=== PATIENT | female | born 1985 | race Caucasian/White ===

== ENCOUNTER 2019-05-17 12:16 | Emergency (ER) | payer SELFPAY ==
[2019-05-17] MEDS ORDERED: dexAMETHasone 10 MG/ML VIAL ONE (15:02)
--- NOTE | 2019-05-17 15:06 | ER ---
Nurse's Notes [facility] Name: Karey Ty Age: 33 yrs Sex: Female : 1985 Arrival Date: 05/17/2019 Time: 12:16 Bed 27 Private MD: Diagnosis: Acute bronchitis;Acute pharyngitis;Acute ethmoidal sinusitis;Acute maxillary sinusitis Presentation: 05/17 12:34 Presenting complaint: Presenting complaint: Patient states: cough, chest congestion, sv zain ear pain x 2 weeks, OTC meds have not helped. Transition of care: patient was not received from another setting of care. Onset of symptoms was May 2019. Risk Assessment: Do you want to hurt yourself or someone else? Patient reports no desire to harm self or others. Care prior to arrival: None. 12:34 Method Of Arrival: Ambulatory sv 12:34 Acuity: HARSH 3 sv 14:15 Initial Sepsis Screen: Does the patient meet any 2 criteria? No. Patient's initial aa5 sepsis screen is negative. Does the patient have a suspected source of infection? No. Patient's initial sepsis screen is negative. Triage Assessment: 12:34 General: Appears in no apparent distress. uncomfortable, Behavior is calm, cooperative, sv appropriate for age. Neuro: Level of Consciousness is awake, alert, obeys commands, Oriented to person, place, time, situation, Moves all extremities. Full function. Respiratory: Reports cough that is persistent pain with cough Respiratory effort is even, unlabored, Respiratory pattern is regular, symmetrical. Historical: - Allergies: 12:38 Ceftin; sv - PMHx: 12:38 None; sv - PSHx: 12:38 Hysterectomy; sv - Ebola Screening: : No symptoms or risks identified at this time. Screenin:15 Abuse screen: Denies threats or abuse. Nutritional screening: No deficits noted. aa5 Tuberculosis screening: No symptoms or risk factors identified. Fall Risk None identified. Assessment: 14:15 General: Appears comfortable, Behavior is calm, cooperative. Pain: Complains of pain in aa5 right ear and left ear Pain currently is 6 out of 10 on a pain scale. Quality of pain is described as aching. Neuro: Level of Consciousness is awake, alert, obeys commands, Oriented to person, place, time, situation. Cardiovascular: Heart tones S1 S2 present Patient's skin is warm and dry. Rhythm is regular. Respiratory: Reports cough and chest congestion Airway is patent Respiratory effort is even, unlabored, Respiratory pattern is regular, symmetrical, Breath sounds are clear bilaterally. GI: No signs and/or symptoms were reported involving the gastrointestinal system. : No signs and/or symptoms were reported regarding the genitourinary system. EENT: Reports pain in right ear and left ear. Derm: Skin is pink, warm \T\ dry. Musculoskeletal: Range of motion: intact in all extremities. 15:20 Reassessment: Patient is alert, oriented x 3, equal unlabored respirations, skin aa5 warm/dry/pink. Vital Signs: 12:38 BP 118 / 66; Pulse 71; Resp 20; Temp 98.1; Pulse Ox 97% ; Weight 74.84 kg; Height 5 ft. sv 7 in. (170.18 cm); 12:38 Body Mass Index 25.84 (74.84 kg, 170.18 cm) sv ED Course: 12:16 Patient arrived in ED. rg4 12:38 Triage completed. sv 12:38 Arm band placed on. sv 12:59 Strep Sent. sv 12:59 Flu Sent. sv 14:08 Lilian Bella, GUS is Primary Nurse. aa5 14:15 Patient has correct armband on for positive identification. Bed in low position. Call aa5 light in reach. Side rails up X 1. 14:15 No provider procedures requiring assistance completed. aa5 14:19 [facility] 14:19 Nuno Edmond MD is Attending Physician. [facility] 15:20 Patient did not have IV access during this emergency room visit. aa5 Administered Medications: 15:06 Drug: Decadron 10 mg Route: IM; Site: left deltoid; aa5 15:20 Follow up: Response: No adverse reaction aa5 Outcome: 15:03 Discharge ordered by . [facility] 15:20 Discharged to home ambulatory. aa5 15:20 Condition: stable 15:20 Discharge instructions given to patient, Instructed on discharge instructions, follow up and referral plans. medication usage, Demonstrated understanding of instructions, follow-up care, medications, Prescriptions given X 2. 15:23 Patient left the ED. hb Signatures: Stephanie Winchester RN RN sv Jonathan Astorga PA PA jmm Calderon, Audri RN RN aa5 Brittanie Petersen RN RN Monalisa Gayle4 Corrections: (The following items were deleted from the chart) 13:41 12:34 Presenting complaint: Patient states: cough, chest congestion x 2 weeks, OTC meds sv have not helped. Presenting complaint: Patient states: cough, chest congestion x 2 weeks, OTC meds have not helped. sv
--- NOTE | 2019-05-17 15:07 | EDPHYS ---
Physician Documentation [facility] Name: Karey Ty Age: 33 yrs Sex: Female : 1985 Arrival Date: 05/17/2019 Time: 12:16 Bed 27 Private MD: ED Physician Nuno Edmond HPI: 05/17 14:57 This 33 yrs old Female presents to ER via Ambulatory with complaints of Cough.[facility] 14:57 The patient or guardian reports cough. Onset: The symptoms/episode began/occurred jmm gradually, 3 week(s) ago. Modifying factors: The symptoms are alleviated by nothing, the symptoms are aggravated by nothing. This is a 33 year old female with no chronic medical conditions that presents to the ED with complaints of sinus pain, chest congestion, ear pain for the past 3 week. Patient complains of subjective fever and chills. . Historical: - Allergies: 12:38 Ceftin; sv - PMHx: 12:38 None; sv - PSHx: 12:38 Hysterectomy; sv - Ebola Screening: : No symptoms or risks identified at this time. ROS: 14:57 Eyes: Negative for injury, pain, redness, and discharge. jmm 14:57 Cardiovascular: Negative for chest pain, palpitations, and edema, Respiratory: Negative for shortness of breath, cough, wheezing, and pleuritic chest pain, Abdomen/GI: Negative for abdominal pain, nausea, vomiting, diarrhea, and constipation, Back: Negative for injury and pain, Skin: Negative for injury, rash, and discoloration, Neuro: Negative for headache, weakness, numbness, tingling, and seizure. 14:57 Constitutional: Positive for body aches, chills, fever. 14:57 ENT: Positive for ear pain, sinus congestion, sinus pain, sore throat. 14:57 All other systems are negative. Exam: 14:57 Constitutional: This is a well developed, well nourished patient who is awake, alert, jmm and in no acute distress. Head/Face: atraumatic. Eyes: EOMI, no conjunctival erythema appreciated 14:57 Chest/axilla: Normal chest wall appearance and motion. Cardiovascular: Regular rate and rhythm. No edema appreciated Respiratory: Normal respirations, no respiratory distress appreciated Abdomen/GI: Non distended, soft Back: Normal ROM Skin: General appearance color normal MS/ Extremity: Moves all extremities, no obvious deformities appreciated, no edema noted to the lower extremities Neuro: Awake and alert, normal gait Psych: Behavior is normal, Mood is normal, Patient is cooperative and pleasant 14:57 Head/face: Sinus tenderness, that is moderate, is located over the right ethmoid sinus, left ethmoid sinus, right maxillary sinus and left maxillary sinus. 14:57 ENT: Posterior pharynx: erythema, that is mild. Vital Signs: 12:38 BP 118 / 66; Pulse 71; Resp 20; Temp 98.1; Pulse Ox 97% ; Weight 74.84 kg; Height 5 ft. sv 7 in. (170.18 cm); 12:38 Body Mass Index 25.84 (74.84 kg, 170.18 cm) sv MDM: 14:41 Patient medically screened. [facility] 14:57 Data reviewed: vital signs, nurses notes. Counseling: I had a detailed discussion with caio the patient and/or guardian regarding: the historical points, exam findings, and any diagnostic results supporting the discharge/admit diagnosis, the need for outpatient follow up, to return to the emergency department if symptoms worsen or persist or if there are any questions or concerns that arise at home. 15:01 ED course: Patient is alert and non toxic in appearance in the ED. VS wnl. CXR [facility] negative. Pe appears consistent with acute sinusitis. . 05/17 12:39 Order name: Flu 05/17 12:39 Order name: Strep 05/17 12:39 Order name: Chest Pa And Lat (2 Views) XRAY 05/17 13:13 Order name: Group A Streptococcus Rapid Sc; Complete Time: 14:39 EDMS 05/17 13:20 Order name: Influenza Screen (A ; Complete Time: 14:39 EDMS Administered Medications: 15:06 Drug: Decadron 10 mg Route: IM; Site: left deltoid; aa5 15:20 Follow up: Response: No adverse reaction aa5 Disposition: 05/18 08:56 Co-signature as Attending Physician, Nuno Edmond MD I agree with the assessment and kdr plan of care. Disposition: 05/17/19 15:03 Discharged to Home. Impression: Acute bronchitis, Acute pharyngitis, Acute ethmoidal sinusitis, Acute maxillary sinusitis. - Condition is Stable. - Discharge Instructions: Acute Bronchitis, Adult, Pharyngitis, Sinusitis, Adult. - Prescriptions for Zithromax Z- Rc 250 mg Oral Tablet - take 1 tablet by ORAL route as directed for 5 days Day 1 - take two (2) tablets one time. Day 2, 3, 4 , 5 take one (1) tablet once daily.; 6 tablet. Albuterol Sulfate 90 mcg/actuation - inhale 1-2 puff by INHALATION route every 4-6 hours; 1 Inhaler. - Medication Reconciliation Form, Thank You Letter, Antibiotic Education, Prescription Opioid Use form. - Work release form (05/17/19 15:23). hb - Follow up: Private Physician; When: 2 - 3 days; Reason: Recheck today's complaints, Continuance of care, Re-evaluation by your physician. Signatures: Dispatcher [employer] Stephanie Blunt RN RN Nuno Edmond MD MD [facility] Jonathan Astorga PA PA jmm Calderon, Audri, RN RN aa5 Brittanie Petersen RN RN Corrections: (The following items were deleted from the chart) 05/17 15:23 15:03 05/17/2019 15:03 Discharged to Home. Impression: Acute bronchitis; Acute hb pharyngitis; Acute ethmoidal sinusitis; Acute maxillary sinusitis. Condition is Stable. Forms are Medication Reconciliation Form, Thank You Letter, Antibiotic Education, Prescription Opioid Use. Follow up: Private Physician; When: 2 - 3 days; Reason: Recheck today's complaints, Continuance of care, Re-evaluation by your physician. cas
--- NOTE | 2019-05-17 15:24 | RAD REPORT ---
EXAM DESCRIPTION: RAD - Chest Pa And Lat (2 Views) - 05/17/2019 2:43 pm CLINICAL HISTORY: Congestion;Cough Chest pain. COMPARISON: <Comparisons> FINDINGS: The lungs are clear. The heart is normal in size. No displaced fractures. IMPRESSION: No acute or concerning finding suspected.
== END 2019-05-17 15:23 | disposition home or self-care (01) ==
LOC: ER 12:16
DX: J20.9 Acute bronchitis, unspecified (principal); J02.9 Acute pharyngitis, unspecified; J01.20 Acute ethmoidal sinusitis, unspecified; J01.00 Acute maxillary sinusitis, unspecified
CPT/HCPCS: 71046; 87070; 87081; 87804; 96372; 99283; J1100

== ENCOUNTER 2019-08-03 07:23 | Emergency (ER) | payer SELFPAY ==
[2019-08-03] MEDS ORDERED: IBUPROFEN 200 MG TAB PO ONE (07:43)
[2019-08-03] MEDS ORDERED: IBUPROFEN 400 MG TAB ONE (07:43)
--- NOTE | 2019-08-03 08:13 | EDPHYS ---
Physician Documentation [facility] Name: Karey Ty Age: 33 yrs Sex: Female : 1985 Arrival Date: 08/03/2019 Time: 07:26 Bed 16 Private MD: None, None ED Physician Arnaud Griffith HPI: 08/03 07:36 This 33 yrs old Female presents to ER via Unassigned with complaints of la1 Headache, Sore Throat. 07:36 The patient complains of pain to the global. The patient describes the headache as la1 aching, constant. Onset: The symptoms/episode began/occurred 5 day(s) ago. Associated signs and symptoms: Pertinent positives: sinus congestion, sore throat. Severity of symptoms: At its worst the pain was mild. Pt with multiple ill contacts with similar symptoms, onset on 07/29 with congestions, head pressure, subjective fever, has been taking nyquil and dayquil without relief at home. 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 - Social history:: Smoking status: . - Ebola Screening: : Patient denies travel to an Ebola-affected area in the 21 days before illness onset. ROS: 07:38 Constitutional: + subjective fever Eyes: Negative for injury, pain, redness, and la1 discharge, ENT: + sore throat and sinus congestion Neck: Negative for injury, pain, and swelling, Cardiovascular: Negative for chest pain, palpitations, and edema, Respiratory: Negative for shortness of breath, cough, wheezing, and pleuritic chest pain, Abdomen/GI: Negative for abdominal pain, nausea, vomiting, diarrhea, and constipation, Back: Negative for injury and pain, : Negative for injury, bleeding, discharge, and swelling. Exam: 07:38 Constitutional: This is a well developed, well nourished patient who is awake, alert, la1 and in no acute distress. Head/Face: Normocephalic, atraumatic. Eyes: Pupils equal round and reactive to light, extra-ocular motions intact. Lids and lashes normal. Conjunctiva and sclera are non-icteric and not injected. Cornea within normal limits. Periorbital areas with no swelling, redness, or edema. ENT: Nares patent. + green nasal discharge, Tympanic membranes are normal and external auditory canals are clear. Oropharynx with mild erythema, swelling, or masses, exudates, or evidence of obstruction, uvula midline. Mucous membranes moist. Neck: Trachea midline, no cervical lymphadenopathy. Supple, full range of motion without nuchal rigidity, or vertebral point tenderness. No Meningismus. Chest/axilla: Normal chest wall appearance and motion. Nontender with no deformity. No lesions are appreciated. Cardiovascular: Regular rate and rhythm with a normal S1 and S2. No gallops, murmurs, or rubs. Normal PMI, no JVD. No pulse deficits. Respiratory: Lungs have equal breath sounds bilaterally, clear to auscultation No rales, rhonchi or wheezes noted. No increased work of breathing, no retractions or nasal flaring. Abdomen/GI: Soft, non-tender, with normal bowel sounds. No distension or tympany. No guarding or rebound. No evidence of tenderness throughout. Vital Signs: 07:34 BP 161 / 81; Pulse 61; Resp 17; Temp 98.0; Pulse Ox 100% on R/A; Weight 72.57 kg; iw Height 5 ft. 7 in. (170.18 cm); 07:34 Body Mass Index 25.06 (72.57 kg, 170.18 cm) iw MDM: 07:34 Patient medically screened. la1 08:11 Data reviewed: vital signs, nurses notes, lab test result(s). Data interpreted: Pulse la1 oximetry: on room air is 100 %. Interpretation: normal. Counseling: I had a detailed discussion with the patient and/or guardian regarding: the historical points, exam findings, and any diagnostic results supporting the discharge/admit diagnosis, lab results, the need for outpatient follow up, a family practitioner. Medication response: ibuprofen administration has improved the patient's pain. 1202 07:34 Order name: Strep; Complete Time: 08:02 la1 Administered Medications: 07:43 Drug: Ibuprofen 600 mg Route: PO; tw2 08:20 Follow up: Response: No adverse reaction tw2 Disposition: 09:18 Co-signature as Attending Physician, Arnaud Griffith MD. rn Disposition: 08/03/19 08:12 Discharged to Home. Impression: Acute pharyngitis, Cough. - Condition is Stable. - Discharge Instructions: Pharyngitis, Viral Respiratory Infection, [id number]. - Prescriptions for brompheniramine- pseudoeph-DM 2-30-10 mg/5 mL Oral syrup - take 10 milliliter by ORAL route every 4 hours; 120 milliliter. - Medication Reconciliation Form, Thank You Letter, Work release form form. - Follow up: Private Physician; When: 2 - 3 days. - Problem is new. - Symptoms are unchanged. Signatures: Dispatcher [employer] EDMS Arnaud Griffith MD MD rn Dez Flores, GARCIA-C BUSINESS EDUCATION PROFESSOR-Cla1 Elba Guadalupe RN RN tw2 Corrections: (The following items were deleted from the chart) 08:20 08:12 08/03/2019 08:12 Discharged to Home. Impression: Acute pharyngitis; Cough. tw2 Condition is Stable. Discharge Instructions: Allergies, Adult, Pharyngitis. Prescriptions for lggjcsewhyevnrh-cclaobkzb-QN 2-30-10 mg/5 mL Oral syrup - take 10 milliliter by ORAL route every 4 hours; 120 milliliter. and Forms are Work release form, Medication Reconciliation Form, Thank You Letter, Antibiotic Education, Prescription Opioid Use. Follow up: Private Physician; When: 2 - 3 days. Problem is new. Symptoms are unchanged. la1
--- NOTE | 2019-08-03 08:13 | ER ---
Nurse's Notes [facility] Name: Karey Ty Age: 33 yrs Sex: Female : 1985 Arrival Date: 08/03/2019 Time: 07:26 Bed 16 Private MD: None, None Diagnosis: Acute pharyngitis;Cough Presentation: 08/03 07:32 Note provider at bedside at this time. tw2 07:33 Risk Assessment: Do you want to hurt yourself or someone else? Patient reports no tw2 desire to harm self or others. Initial Sepsis Screen: Does the patient meet any 2 criteria? No. Patient's initial sepsis screen is negative. Does the patient have a suspected source of infection? No. Patient's initial sepsis screen is negative. Care prior to arrival: None. 07:36 Presenting complaint: Patient states: sore throat, headache, sinus pressure, fever iw since Saturday. Transition of care: patient was not received from another setting of care. Onset of symptoms was July 29, 2019. 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 - Social history:: Smoking status: . - Ebola Screening: : Patient denies travel to an Ebola-affected area in the 21 days before illness onset. Screenin:30 Abuse screen: Denies threats or abuse. Nutritional screening: No deficits noted. tw2 Tuberculosis screening: No symptoms or risk factors identified. Fall Risk None identified. Assessment: 07:37 General: Appears in no apparent distress. Behavior is calm, cooperative, appropriate tw2 for age. Pain: Complains of pain in uvula, left aspect of posterior pharynx and right aspect of posterior pharynx. Neuro: Level of Consciousness is awake, alert, obeys commands, Oriented to person, place, time, situation. Cardiovascular: Patient's skin is warm and dry. Respiratory: Airway is patent Respiratory effort is even, unlabored, Respiratory pattern is regular, symmetrical. GI: No signs and/or symptoms were reported involving the gastrointestinal system. Abdomen is flat, non-distended. : No signs and/or symptoms were reported regarding the genitourinary system. EENT: Reports pain when swallowing. Derm: No signs and/or symptoms reported regarding the dermatologic system. Musculoskeletal: Range of motion: intact in all extremities. 08:19 Reassessment: Patient appears in no apparent distress at this time. No changes from tw2 previously documented assessment. Patient and/or family updated on plan of care and expected duration. Pain level reassessed. Patient is alert, oriented x 3, equal unlabored respirations, skin warm/dry/pink. Vital Signs: 07:34 BP 161 / 81; Pulse 61; Resp 17; Temp 98.0; Pulse Ox 100% on R/A; Weight 72.57 kg; iw Height 5 ft. 7 in. (170.18 cm); 07:34 Body Mass Index 25.06 (72.57 kg, 170.18 cm) iw ED Course: 07:26 Patient arrived in ED. ds1 07:26 None, None is Private Physician. ds1 07:27 Dez Flores FNP-C is [facility]. la1 07:27 Arnaud Griffith MD is Attending Physician. la1 07:30 Elba Guadalupe RN is Primary Nurse. tw2 07:32 Bed in low position. Call light in reach. tw2 07:32 Arm band placed on. tw2 07:37 Triage completed. iw 07:42 Strep swab sent to lab. em1 08:19 No provider procedures requiring assistance completed. Patient did not have IV access tw2 during this emergency room visit. Administered Medications: 07:43 Drug: Ibuprofen 600 mg Route: PO; tw2 08:20 Follow up: Response: No adverse reaction tw2 Outcome: 08:12 Discharge ordered by . la1 08:19 Discharged to home ambulatory. tw2 08:19 Condition: stable 08:19 Discharge instructions given to patient, Instructed on discharge instructions, follow up and referral plans. medication usage, Demonstrated understanding of instructions, follow-up care, medications, Prescriptions given X 1. 08:20 Patient left the ED. tw2 Signatures: Corinna Cage ds1 Elyssa Salazar RN RN iw Dickson Oshea em1 Dez Flores FNP-C FNP-Cla1 Guadalupe, Elba, RN RN tw2 Corrections: (The following items were deleted from the chart) 07:37 07:34 BP 161 / 81; Pulse 61bpm; Resp 17bpm; Pulse Ox 100% RA; tw2 iw
[2019-08-03 09:25] VITALS: BP 161/81; TEMP 98; O2SAT 100
== END 2019-08-03 08:20 | disposition home or self-care (01) ==
LOC: ER 07:23
DX: J02.9 Acute pharyngitis, unspecified (principal); R05 Cough; Z88.8 Allergy status to other drugs, medicaments and biological substances
CPT/HCPCS: 87070; 87081; 99283